=== PATIENT | female | born 1950 | race Hispanic/Latino ===

== ENCOUNTER 2017-11-28 05:58 | Outpatient (CLI) | payer BC ==
[2017-11-28 06:42] LABS: Hematocrit 43.6 % (30.3-42.9); Hemoglobin 14.5 gm/dl (10.1-14.3); Mean Corpuscular HGB Conc 33 % (30-34); Mean Corpuscular Hemoglobin 29 pg (28-32); Mean Corpuscular Volume 88 fl (79-97); Platelet Count 234 K/mm3 (140-440); Red Blood Count 4.94 M/mm3 (3.65-5.03)
[2017-11-28 07:02] LABS: Alanine Aminotransferase 12 units/L (7-56); Albumin 3.7 g/dL (3.9-5); BUN/Creatinine Ratio 20; Blood Urea Nitrogen 10 mg/dL (7-17); Calcium 8.8 mg/dL (8.4-10.2); Chol/HDL Ratio 4.22 %; HDL Cholesterol 48 mg/dL (40-59); Hemolysis Index 12; Iron 85 ug/dL (37-170); LDL Cholesterol,Direct 151 mg/dL (50-130)
[2017-11-28 07:07] LABS: Free T4 (Free Thyroxine) 1.06 ng/dL (0.76-1.46)
== END 2017-11-28 05:59 | disposition home or self-care (01) ==
LOC: LAB 05:58
DX: E55.9 Vitamin D deficiency, unspecified (principal); I10 Essential (primary) hypertension; N95.1 Menopausal and female climacteric states; R51 Headache
CPT/HCPCS: 36415; 80053; 80061; 82306; 82533; 82607; 82747; 83540; 84439; 84443; 85027

== ENCOUNTER 2020-05-10 08:55 | Outpatient (CLI) | payer BC ==
[2020-05-10 13:25] LABS: Hematocrit 46.3 % (30.3-42.9); Hemoglobin 15.4 gm/dl (10.1-14.3); Mean Corpuscular HGB Conc 33 % (30-34); Mean Corpuscular Volume 89 fl (79-97); Platelet Count 232 K/mm3 (140-440); Red Blood Count 5.24 M/mm3 (3.65-5.03); Red Cell Distribution Width 13.7 % (13.2-15.2)
[2020-05-10 13:50] LABS: Alanine Aminotransferase 11 units/L (7-56); Blood Urea Nitrogen 10 mg/dL (7-17); Calcium 8.6 mg/dL (8.4-10.2); Chol/HDL Ratio 3.43 %; HDL Cholesterol 57 mg/dL (40-59); Hemolysis Index 8; LDL Cholesterol,Direct 136 mg/dL (50-130)
[2020-05-10 13:52] LABS: BUN/Creatinine Ratio 14
[2020-05-10 14:45] LABS: Total Cells Counted 100
[2020-05-10 14:51] LABS: Platelet Estimate Consistent w Auto; RBC Morphology Normal
== END 2020-05-10 08:56 | disposition home or self-care (01) ==
LOC: LAB 08:55
PROVIDERS: ATTEND Family Medicine
DX: I10 Essential (primary) hypertension (principal); J45.991 Cough variant asthma; E88.89 Other specified metabolic disorders; E55.9 Vitamin D deficiency, unspecified; N95.1 Menopausal and female climacteric states; Z68.28 Body mass index [BMI] 28.0-28.9, adult
CPT/HCPCS: 36415; 80053; 80061; 82306; 84439; 84443; 85007; 85025

== ENCOUNTER 2021-06-28 06:05 | Outpatient (CLI) | payer BC ==
[2021-06-28 06:58] LABS: Basophils # (Auto) 0.1 K/mm3 (0.0-0.1); Basophils % (Auto) 0.8 % (0.0-1.8); Eosinophils # (Auto) 0.1 K/mm3 (0.0-0.4); Eosinophils % (Auto) 1.1 % (0.0-4.3); Hematocrit 48.9 % (30.3-42.9); Hemoglobin 15.8 gm/dl (10.1-14.3); Lymphocytes % (Auto) 11.3 % (13.4-35.0); Mean Corpuscular HGB Conc 32 % (30-34); Mean Corpuscular Volume 89 fl (79-97); Monocytes # (Auto) 0.7 K/mm3 (0.0-0.8); Monocytes % (Auto) 7.4 % (0.0-7.3); Platelet Count 251 K/mm3 (140-440); Red Blood Count 5.48 M/mm3 (3.65-5.03); Red Cell Distribution Width 13.4 % (13.2-15.2)
[2021-06-28 07:13] LABS: Albumin 4.1 g/dL (3.9-5); Blood Urea Nitrogen 16 mg/dL (7-17); Calcium 9.4 mg/dL (8.4-10.2); Chol/HDL Ratio 3.91 %; HDL Cholesterol 59 mg/dL (40-59); Hemolysis Index 8; LDL Cholesterol,Direct 159 mg/dL (50-130)
[2021-06-28 07:16] LABS: Alanine Aminotransferase < 5 units/L (7-56); BUN/Creatinine Ratio 23
[2021-06-28 08:06] LABS: Free T4 (Free Thyroxine) 1.02 ng/dL (0.76-1.46)
== END 2021-06-28 06:06 | disposition home or self-care (01) ==
LOC: LAB 06:05
PROVIDERS: ATTEND Family Medicine
DX: E88.89 Other specified metabolic disorders (principal); E55.9 Vitamin D deficiency, unspecified; I10 Essential (primary) hypertension
CPT/HCPCS: 36415; 80053; 80061; 82306; 83036; 84439; 84443; 85025

== ENCOUNTER 2021-10-26 05:54 | Outpatient (CLI) | payer BC ==
[2021-10-26 06:34] LABS: Basophils # (Auto) 0.1 K/mm3 (0.0-0.1); Basophils % (Auto) 1.2 % (0.0-1.8); Eosinophils # (Auto) 0.1 K/mm3 (0.0-0.4); Eosinophils % (Auto) 1.2 % (0.0-4.3); Hematocrit 44.6 % (30.3-42.9); Hemoglobin 15.4 gm/dl (10.1-14.3); Lymphocytes % (Auto) 10.9 % (13.4-35.0); Mean Corpuscular HGB Conc 35 % (30-34); Mean Corpuscular Volume 88 fl (79-97); Monocytes # (Auto) 0.6 K/mm3 (0.0-0.8); Monocytes % (Auto) 6.8 % (0.0-7.3); Platelet Count 243 K/mm3 (140-440); Red Blood Count 5.07 M/mm3 (3.65-5.03); Red Cell Distribution Width 13.1 % (13.2-15.2)
[2021-10-26 06:53] LABS: Alanine Aminotransferase 12 units/L (7-56); Albumin 3.9 g/dL (3.9-5); Blood Urea Nitrogen 11 mg/dL (7-17); Calcium 8.9 mg/dL (8.4-10.2); Chol/HDL Ratio 3.67 %; HDL Cholesterol 56 mg/dL (40-59); Hemolysis Index 6; LDL Cholesterol,Direct 145 mg/dL (50-130)
[2021-10-26 06:56] LABS: BUN/Creatinine Ratio 18
[2021-10-26 07:02] LABS: Free T4 (Free Thyroxine) 1.03 ng/dL (0.76-1.46)
== END 2021-10-26 05:55 | disposition home or self-care (01) ==
LOC: LAB 05:54
PROVIDERS: ATTEND Family Medicine
DX: I10 Essential (primary) hypertension (principal); R73.03 Prediabetes; E78.2 Mixed hyperlipidemia; E55.9 Vitamin D deficiency, unspecified
CPT/HCPCS: 36415; 80053; 80061; 82306; 83036; 84439; 84443; 85025